=== PATIENT | female | born 1980 | race Two or more races ===

== ENCOUNTER 2021-06-04 08:36 | Emergency (ER) | payer MEDICAID ==
[~2021-06-04] VITALS: Ht 149.9 cm; Wt 79.5 kg
[~2021-06-04 08:36] MED LIST: ALBU18HF2 IH; AMOX-580 PO; HYDR-4353 PO; IBUP-24 PO; LORA-512 PO; METF1000 PO; MULT-620 PO
[2021-06-04 09:48] VITALS: BP 123/77
== END 2021-06-04 11:20 | disposition home or self-care (01) ==
LOC: ER 08:37
DX: B34.9 Viral infection, unspecified (principal); Z20.822 Contact with and (suspected) exposure to COVID-19; E11.9 Type 2 diabetes mellitus without complications; Z87.442 Personal history of urinary calculi; Z98.890 Other specified postprocedural states; Z90.710 Acquired absence of both cervix and uterus; Z88.6 Allergy status to analgesic agent; Z79.899 Other long term (current) drug therapy
CPT/HCPCS: 87635; 99283; C9803

== ENCOUNTER 2022-02-13 21:06 | Emergency (ER) | payer MEDICAID ==
[~2022-02-13] VITALS: Ht 149.9 cm; Wt 81.0 kg
[2022-02-13 21:53] LABS: CLARITY,URINE SLIGHTLY CLOUDY (Clear); COLOR,URINE YELLOW (Yellow); GLUCOSE, URINE >=1000 mg/dl (Neg); KETONES,URINE 15 mg/dl (Neg); LEUKOCYTE ESTERASE ,URINE NEGATIVE (Neg); NITRITES, URINE NEGATIVE (Neg); OCCULT BLOOD,URINE SMALL (Neg); PH,URINE 8.5 (4.8-8.0); PROTEIN,URINE NEGATIVE (Neg); UROBILINOGEN,URINE 0.2 E.U/dL (0.2-1.0)
[2022-02-13 21:57] LABS: BASOPHILS # (AUTO) 0.1 X10'3 (0-0.2); BASOPHILS % (AUTO) 0.9 % (0-1); EOSINOPHILS # (AUTO) 0.3 X10'3 (0-0.9); HEMATOCRIT 40.6 % (35.0-45.0); LYMPHOCYTES # (AUTO) 4.7 X10'3 (1.1-4.8); LYMPHOCYTES % (AUTO) 36.9 % (21-51); MEAN CORPUSCULAR HEMOGLOBIN 29.7 PG (27.0-31.0); MEAN CORPUSCULAR HGB CONC 34.6 g/dL (33.0-36.5); MEAN PLATELET VOLUME 7.3 FL (7.4-10.4); MONOCYTES # (AUTO) 0.7 X10'3 (0-0.9); MONOCYTES % (AUTO) 5.4 % (2-12); NEUTROPHILS % (AUTO) 54.8 % (42-75); PLATELET COUNT 365 X10'3 (140-440); RED BLOOD COUNT 4.72 X10'6 (4.20-5.60); RED CELL DISTRIBUTION WIDTH 12.7 % (11.5-14.5); WHITE BLOOD COUNT 12.8 X10'3 (4.5-11.0)
[2022-02-13 21:59] LABS: UA COLLECTION TYPE CLN CATCH MIDSTREAM
[2022-02-13 22:00] LABS: BACTERIA,URINE 2+ /HPF (Neg); RBC,URINE 0-2 /HPF (0-2); SQUAMOUS EPITHELIAL CELL,UR MANY /LPF (FEW); WBC,URINE 0-4 /HPF (0-4)
[2022-02-13 22:06] LABS: ALANINE AMINOTRANSFERASE 82 U/L (12-78); ALBUMIN 3.8 G/DL (3.4-5.0); ALKALINE PHOSPHATASE 111 IU/L (46-116); ANION GAP 12 (8-16); ASPARTATE AMINO TRANSFERASE 64 U/L (10-37); BILIRUBIN,TOTAL 0.3 MG/DL (0.1-1.0); BLOOD UREA NITROGEN 14 MG/DL (7-18); BUN/CREATININE RATIO 22.2 (6.6-38.0); CALCIUM 8.7 MG/DL (8.5-10.1); CHLORIDE 99 MMOL/L (99-107); CREATININE 0.63 MG/DL (0.40-0.90); GLUCOSE 261 MG/DL (70-104); POTASSIUM 3.5 MMOL/L (3.5-5.1); SODIUM 134 MMOL/L (135-145); TOTAL CARBON DIOXIDE 23.1 MMOL/L (24-32); TOTAL PROTEIN 7.7 G/DL (6.4-8.2); eGFR > 90 ML/MIN
[2022-02-14] MEDS ORDERED: morphine 4 MG/ML inj SYRINge IV PRN (02:05)
[2022-02-14] MEDS ORDERED: normal saline 1000ML IV soln IVB ONE (02:05)
[2022-02-14] MEDS ORDERED: ondansetron/PF 4mg/2ml inj IV ONE ×3 (02:05→08:35)
[2022-02-14] MEDS ORDERED: HYDROmorphone 1 mg/ml syringe IV ONE (03:50)
[2022-02-14] MEDS ORDERED: iohexol 300mg/ml 100ml inj. ONE (04:19)
[2022-02-14] MEDS: diatr meglu/diatrizoate 30ml oral sol.-(3 dose) bottle PO SCH ×3 (04:20→05:56)
[2022-02-14] MEDS ORDERED: piperacillin/tazo 3.375gm/50ml 50 ML IV ONE (07:25)
[2022-02-14] MEDS ORDERED: HYDROcodone/acetaminophen 5mg/325mg tablet PO ONE (07:25)
[2022-02-14] MEDS ORDERED: ONDA8TAB13 PO (07:29)
[2022-02-14] MEDS ORDERED: AMOX-115 PO (07:29)
[2022-02-14] MEDS ORDERED: HYDR-3965 PO (07:29)
[2022-02-14] MEDS ORDERED: bisacodyl 5mg tablet.DR PO ONE (07:35)
[2022-02-14 08:34] VITALS: BP 116/71
== END 2022-02-14 09:11 | disposition home or self-care (01) ==
LOC: ER 21:07
DX: R10.31 Right lower quadrant pain (principal); E11.65 Type 2 diabetes mellitus with hyperglycemia; R11.2 Nausea with vomiting, unspecified; K92.1 Melena; Z87.442 Personal history of urinary calculi; Z90.710 Acquired absence of both cervix and uterus; Z98.890 Other specified postprocedural states; Z88.8 Allergy status to other drugs, medicaments and biological substances; Z88.6 Allergy status to analgesic agent; Z79.2 Long term (current) use of antibiotics; Z79.899 Other long term (current) drug therapy
CPT/HCPCS: 36415; 71045; 74176; 74177; 80053; 81001; 83605; 83880; 84484; 85025; 85651; 86140; 93005; 96365; 96375; 96376; 99285; J1170; J2270; J2405; J2543; J7030; Q9963; Q9967

== ENCOUNTER 2022-02-16 23:36 | Inpatient (IN) | payer MEDICAID ==
[~2022-02-16] VITALS: Ht 149.9 cm; Wt 81.0 kg
[~2022-02-16 23:36] MED LIST changes: +AMOX-115 PO; +HYDR-3965 PO; +ONDA8TAB13 PO
[2022-02-17] VITALS (16 sets, daily range): BP systolic 94–142; BP diastolic 39–95
[2022-02-17] MEDS ORDERED: normal saline 1000ML IV soln IVB ONE (00:10)
[2022-02-17] MEDS ORDERED: ondansetron/PF 4mg/2ml inj IV ONE (00:10)
[2022-02-17] MEDS ORDERED: meperidine/PF 50mg/ml syringe IV ONE (00:15)
[2022-02-17 00:20] LABS: BASOPHILS # (AUTO) 0.1 X10'3 (0-0.2); BASOPHILS % (AUTO) 1.1 % (0-1); EOSINOPHILS # (AUTO) 0.3 X10'3 (0-0.9); EOSINOPHILS % (AUTO) 3.1 % (0-6); HEMATOCRIT 42.1 % (35.0-45.0); HEMOGLOBIN 14.5 g/dl (12.0-16.0); MEAN CORPUSCULAR HEMOGLOBIN 29.9 PG (27.0-31.0); MEAN CORPUSCULAR HGB CONC 34.5 g/dL (33.0-36.5); MEAN CORPUSCULAR VOLUME 86.7 FL (78-98); MEAN PLATELET VOLUME 7.2 FL (7.4-10.4); MONOCYTES # (AUTO) 0.6 X10'3 (0-0.9); MONOCYTES % (AUTO) 5.3 % (2-12); NEUTROPHILS # (AUTO) 5.5 X10'3 (1.8-7.7); NEUTROPHILS % (AUTO) 52.5 % (42-75); PLATELET COUNT 354 X10'3 (140-440); RED BLOOD COUNT 4.86 X10'6 (4.20-5.60); RED CELL DISTRIBUTION WIDTH 12.7 % (11.5-14.5); WHITE BLOOD COUNT 10.4 X10'3 (4.5-11.0)
[2022-02-17] MEDS ORDERED: iohexol 300mg/ml 100ml inj. ONE (00:20)
[2022-02-17 00:51] LABS: CLARITY,URINE CLEAR (Clear); COLOR,URINE YELLOW (Yellow); GLUCOSE, URINE 250 mg/dl (Neg); KETONES,URINE NEGATIVE (Neg); LEUKOCYTE ESTERASE ,URINE NEGATIVE (Neg); NITRITES, URINE NEGATIVE (Neg); OCCULT BLOOD,URINE TRACE-INTACT (Neg); PROTEIN,URINE NEGATIVE (Neg); UA COLLECTION TYPE CLN CATCH MIDSTREAM; URINE HCG NEGATIVE (NEG)
[2022-02-17 00:51] LABS: ALANINE AMINOTRANSFERASE 113 U/L (12-78); ALBUMIN 3.7 G/DL (3.4-5.0); ALBUMIN/GLOBULIN RATIO 0.9 (1.1-1.5); ALKALINE PHOSPHATASE 113 IU/L (46-116); ANION GAP 11 (8-16); ASPARTATE AMINO TRANSFERASE 54 U/L (10-37); BILIRUBIN,TOTAL 0.1 MG/DL (0.1-1.0); BLOOD UREA NITROGEN 15 MG/DL (7-18); BUN/CREATININE RATIO 25.9 (6.6-38.0); CALCIUM 8.9 MG/DL (8.5-10.1); CHLORIDE 98 MMOL/L (99-107); CREATININE 0.58 MG/DL (0.40-0.90); GLUCOSE 245 MG/DL (70-104); LIPASE 105 U/L (73-393); POTASSIUM 3.8 MMOL/L (3.5-5.1); SODIUM 137 MMOL/L (135-145); TOTAL CARBON DIOXIDE 28.5 MMOL/L (24-32); TOTAL PROTEIN 7.8 G/DL (6.4-8.2); eGFR > 90 ML/MIN
[2022-02-17 00:56] LABS: BACTERIA,URINE NONE SEEN /HPF (Neg); RBC,URINE 0-2 /HPF (0-2); SQUAMOUS EPITHELIAL CELL,UR FEW /LPF (FEW); WBC,URINE NONE SEEN /HPF (0-4)
[2022-02-17] MEDS ORDERED: mag hydrox/Alum hydrox/simeth 30ml oral suspension PO PRN (03:40)
[2022-02-17] MEDS ORDERED: magnesium hydroxide 30ml (MOM) UD suspension PO PRN (03:40)
[2022-02-17] MEDS ORDERED: diphenhydrAMINE 50 mg/ml inj IV PRN (03:40)
[2022-02-17] MEDS ORDERED: HYDROmorphone inj. 0.5 MG/0.5 ML DISP.SYRIN IV PRN (03:40)
[2022-02-17] MEDS ORDERED: HYDROcodone/acetaminophen 5mg/325mg tablet PO PRN ×2 (03:40→21:25)
[2022-02-17] MEDS ORDERED: bisacodyl 10mg suppository rectal RC PRN (03:40)
[2022-02-17] MEDS ORDERED: naloxone 0.4 mg/ml inj IV PRN ×2 (03:40→21:25)
[2022-02-17] MEDS ORDERED: diphenhydrAMINE 25mg capsule PO PRN (03:40)
[2022-02-17] MEDS ORDERED: acetaminophen 650mg rectal suppository RC PRN (03:40)
[2022-02-17] MEDS ORDERED: morphine 2 MG/ML inj. syringe IV PRN ×2 (03:40→17:45)
[2022-02-17] MEDS ORDERED: acetaminophen 325mg tablet PO PRN ×2 (03:40)
[2022-02-17] MEDS ORDERED: ondansetron 4mg rapidly disintigrating tab PO PRN (03:40)
[2022-02-17] MEDS ORDERED: MESSAGE TO PHARMACY PO ONE (03:45)
[2022-02-17] MEDS ORDERED: DEXTROSE 15 GM of carb/4 tabs (each vial/BOTTLE has 4 tablets) PO PRN ×2 (03:45)
[2022-02-17] MEDS ORDERED: dextrose 50%-water 50ml dispensing syringe IV PRN ×2 (03:45)
[2022-02-17] MEDS ORDERED: glucagon, human recombinant 1mg kit SUBCUT PRN (03:45)
[2022-02-17] MEDS: normal saline 1000ml 1,000 ML IV SCH ×3 (03:59→17:55)
[2022-02-17] MEDS ORDERED: AMOX1TAB15 PO (04:41)
[2022-02-17] MEDS ORDERED: INSU100I34 SQ (04:41)
[2022-02-17] MEDS ORDERED: ONDA4TAB12 PO (04:41)
[2022-02-17] MEDS ORDERED: INSU100I31 SQ (04:41)
[2022-02-17] MEDS ORDERED: DULA0.75 SQ (04:41)
[2022-02-17] MEDS: morphine 2 MG/ML inj. syringe IV PRN ×3 (05:39→15:53)
[2022-02-17] MEDS: ondansetron/PF 4mg/2ml inj IV PRN ×2 (05:39→15:52)
--- NOTE | 2022-02-17 07:30 | NUR ---
Received report from ED RNLester
[2022-02-17 08:04] LABS: HEMOGLOBIN A1C 8.6 % (4.5-6.2)
[2022-02-17] MEDS: docusate sod 100mg capsule PO SCH ×2 (08:05→20:00)
[2022-02-17] MEDS: HYDROcodone/acetaminophen 10/325mg tab PO PRN (08:06)
[2022-02-17] MEDS: pantoprazole 40MG/NS 100ML BAG 100 ML IV SCH (08:18)
[2022-02-17 08:39] LABS: APTT 29 SECONDS (22-32)
[2022-02-17] MEDS: piperacillin/tazo 4.5gm/100ml 100 ML IV SCH ×3 (08:53→23:23)
[2022-02-17] MEDS ORDERED: morphine 4 MG/ML inj SYRINge IV PRN (17:45)
[2022-02-17] MEDS ORDERED: ringers solution, lacted 1,000 ML IV SCH (17:45)
[2022-02-17] MEDS ORDERED: ondansetron/PF 4mg/2ml inj IV PRN (17:45)
[2022-02-17] MEDS ORDERED: proCHLORperazine 10 MG/2 ml inj IV PRN (17:45)
[2022-02-17] MEDS ORDERED: meperidine/PF 25mg/ml syringe IV PRN ×2 (17:45)
--- NOTE | 2022-02-17 18:40 | NUR ---
Problems reprioritized. Patient report given, questions answered & plan of care reviewed with CHARLENE Sequeira.
--- NOTE | 2022-02-17 18:57 | NUR ---
Patient in room [facility]. I have received report from MARCELINO CHANG and had the opportunity to ask questions and assume patient care.
--- NOTE | 2022-02-17 19:21 | NUR ---
Patient is ready for surgery BS 187, VSS. Report given to Katy Jones OR.
[2022-02-17] MEDS ORDERED: BUPIVAcaine 0.5% inj/PF 30 ML ONE (19:42)
[2022-02-17] MEDS ORDERED: FENTANYL CITRATE/PF 50 MCG/1 ML VIAL ONE ×2 (20:04)
[2022-02-17] MEDS ORDERED: midazolam 1 mg/ML 2ml injection ONE (20:04)
[2022-02-17] MEDS ORDERED: LIDOcaine 2% (20mg/ml) 5ml vial ONE (20:08)
[2022-02-17] MEDS ORDERED: propofol inj 20 ML IV ONE (20:08)
[2022-02-17] MEDS ORDERED: rocuronium 10mg/ml inj IV ONE (20:08)
[2022-02-17] MEDS ORDERED: dexamethasone sod phosphate 4mg/ml inj. ONE (20:16)
[2022-02-17] MEDS ORDERED: ondansetron/PF 4mg/2ml inj ONE (20:17)
[2022-02-17] MEDS ORDERED: meperidine/PF 25mg/ml syringe ONE (21:03)
--- NOTE | 2022-02-17 21:34 | NUR ---
Received from OR via BED, accompanied by Anesthesiologist DR GARBER and report given by Anesthesiologist. PT DROWSY, NO S/S OF DISTRESS/DISCOMFORT. ABDOMEN W/3 LAP SITES W/BANDAIDS CDI. Addendum: 02/17/22 at 2201 by Brittany Adams RN Amended: Links added.
[2022-02-17] MEDS ORDERED: insulin regular, human 10 units/0.1 ml syringe IV ONE (21:45)
[2022-02-17] MEDS: ketorolac trometh. 30mg/ml inj. IV PRN (22:02)
[2022-02-17] MEDS: meperidine/PF 25mg/ml syringe IV PRN ×2 (22:24→22:26)
--- NOTE | 2022-02-17 22:44 | NUR ---
Report called to receiving nurse. Transferred via BED, NO Belongings. RN AT BEDSIDE TO RECEIVE PT, BLL, CALL LIGHT GIVEN, SIDE RAILS UP X 2. Special Issues communicated to receiving nurse. YES. Addendum: 02/17/22 at 2253 by Brittany Adams RN Amended: Links added.
--- NOTE | 2022-02-17 23:01 | NUR ---
Patient in room [facility]. I have received report from autumn CHANG and had the opportunity to ask questions and assume patient care.patient c/o pain 10/10 on receiving her from recovery but promptly fell asleep when repositioned in bed. Bandaides x3 to lower abdomen CDI. patient commenced on postop VS, appears stable. Significant other waited for patient to return to room then left to go home. will continue to monitor.
[2022-02-18] VITALS: BP_SYST 119; BP_SYST 130; BP_DIAS 55; BP_DIAS 82
[2022-02-18 00:30] VITALS: BP 120/63
[2022-02-18 01:30] VITALS: BP 138/78
[2022-02-18] MEDS: morphine 2 MG/ML inj. syringe IV PRN ×3 (01:42→11:13)
[2022-02-18 02:30] VITALS: BP 122/77
[2022-02-18] MEDS: insulin Lispro (HumaLOG) vial - multi-dose SQ SCH ×2 (03:20→08:37)
[2022-02-18] MEDS: normal saline 1000ml 1,000 ML IV SCH (03:24)
--- NOTE | 2022-02-18 03:39 | NUR ---
patients blood sugar [id number], Dr krause paged for orders. Recommended treat patient with sliding scale. patient given 8U of insulin see emar. will continue to monitor.
--- NOTE | 2022-02-18 05:21 | NUR ---
patient resting no c/o pain
--- NOTE | 2022-02-18 06:00 | NUR ---
patient c/o pain 10/10 medicated per EMAR, encouraged to ambulate. Report given to Halley CHANG
[2022-02-18 06:30] VITALS: BP 115/66
--- NOTE | 2022-02-18 06:30 | NUR ---
Patient in room [facility]. I have received report from CHARLENE Sequeira and had the opportunity to ask questions and assume patient care.
[2022-02-18 06:41] LABS: BASOPHILS % (AUTO) 0.1 % (0-1); EOSINOPHILS % (AUTO) 0 % (0-6); HEMATOCRIT 39.1 % (35.0-45.0); HEMOGLOBIN 13.1 g/dl (12.0-16.0); MEAN CORPUSCULAR HEMOGLOBIN 28.8 PG (27.0-31.0); MEAN CORPUSCULAR HGB CONC 33.6 g/dL (33.0-36.5); MEAN CORPUSCULAR VOLUME 85.9 FL (78-98); MEAN PLATELET VOLUME 7.3 FL (7.4-10.4); MONOCYTES # (AUTO) 0.3 X10'3 (0-0.9); NEUTROPHILS # (AUTO) 15.4 X10'3 (1.8-7.7); NEUTROPHILS % (AUTO) 91.9 % (42-75); PLATELET COUNT 297 X10'3 (140-440); RED BLOOD COUNT 4.55 X10'6 (4.20-5.60); RED CELL DISTRIBUTION WIDTH 12.7 % (11.5-14.5); WHITE BLOOD COUNT 16.7 X10'3 (4.5-11.0)
[2022-02-18 06:51] LABS: ALANINE AMINOTRANSFERASE 86 U/L (12-78); ALBUMIN/GLOBULIN RATIO 0.9 (1.1-1.5); ALKALINE PHOSPHATASE 91 IU/L (46-116); ANION GAP 12 (8-16); ASPARTATE AMINO TRANSFERASE 38 U/L (10-37); BILIRUBIN,TOTAL 0.4 MG/DL (0.1-1.0); BLOOD UREA NITROGEN 8 MG/DL (7-18); BUN/CREATININE RATIO 11.4 (6.6-38.0); CALCIUM 8.4 MG/DL (8.5-10.1); CHLORIDE 101 MMOL/L (99-107); CHOL/HDL RATIO 4.5 (0.00-4.99); CHOLESTEROL 231 MG/DL (0-200); GLUCOSE 252 MG/DL (70-104); HDL CHOLESTEROL 51 MG/DL (35-60); LDL CHOLESTEROL 158 MG/DL (50-100); POTASSIUM 3.6 MMOL/L (3.5-5.1); SODIUM 135 MMOL/L (135-145); TOTAL CARBON DIOXIDE 21.9 MMOL/L (24-32); TOTAL PROTEIN 6.4 G/DL (6.4-8.2); TRIGLYCERIDES 57 MG/DL (20-135); eGFR > 90 ML/MIN
[2022-02-18] MEDS: pantoprazole 40MG/NS 100ML BAG 100 ML IV SCH (08:26)
[2022-02-18] MEDS: HYDROcodone/acetaminophen 10/325mg tab PO PRN ×2 (08:32→12:58)
[2022-02-18] MEDS: docusate sod 100mg capsule PO SCH (08:32)
[2022-02-18] MEDS: piperacillin/tazo 4.5gm/100ml 100 ML IV SCH (08:33)
[2022-02-18] MEDS: ketorolac trometh. 30mg/ml inj. IV PRN (10:03)
--- NOTE | 2022-02-18 10:49 | NUR ---
Diabetes consult: Noted pt w/ hx of DM, A1c 8.6. Pt states she has been diabetic for 20 years. Provided pt and family w/ written and verbal DM w/ RD contact info. Addendum: 02/18/22 at [address] Amended: Links added.
[2022-02-18 11:00] VITALS: BP 119/66
[2022-02-18] MEDS ORDERED: AMOX-419 PO (15:31)
--- NOTE | 2022-02-18 16:30 | NUR ---
DC inst provided to pt & pt's . IV DC'd, tip intact. All belongings sent w/pt. WC to vehicle.
== END 2022-02-18 16:30 | disposition home or self-care (01) | DRG 234 ==
LOC: ER 23:36 → ED HOLD 02-17 03:43 → SUR 3N 02-17 07:45
PROVIDERS: ADMIT Family Medicine; ATTEND Family Medicine
PROC: BW211ZZ Computerized Tomography (CT Scan) of Abdomen and Pelvis using Low Osmolar Contrast (ICD-10-PCS; 2022-02-17)
PROC: 0DTJ4ZZ Resection of Appendix, Percutaneous Endoscopic Approach (ICD-10-PCS; principal; 2022-02-17 19:55)
DX: K35.80 Unspecified acute appendicitis (principal); E11.9 Type 2 diabetes mellitus without complications; I10 Essential (primary) hypertension; K57.30 Diverticulosis of large intestine without perforation or abscess without bleeding; K59.00 Constipation, unspecified; Z20.822 Contact with and (suspected) exposure to COVID-19; R74.01 Elevation of levels of liver transaminase levels; Z87.442 Personal history of urinary calculi; Z90.710 Acquired absence of both cervix and uterus; Z98.891 History of uterine scar from previous surgery; Z88.8 Allergy status to other drugs, medicaments and biological substances; Z79.899 Other long term (current) drug therapy; Z90.722 Acquired absence of ovaries, bilateral
CPT/HCPCS: 36415; 71045; 74177; 80053; 80061; 81001; 81025; 82948; 83036; 83605; 83690; 83735; 83880; 85025; 85610; 85730; 87040; 87081; 87635; 93005; 99285; A4215; A4314; A4618; A7000; C9113; G0378; J1100; J1815; J1885; J2175; J2250; J2270; J2405; J2543; J2704; J3010; J3490; J7030; J7120; Q9967; S0020

== ENCOUNTER 2022-02-22 15:08 | Inpatient (IN) | payer MEDICAID ==
[~2022-02-22] VITALS: Ht 149.9 cm; Wt 81.8 kg
[~2022-02-22 15:08] MED LIST changes: -ALBU18HF2 IH; -AMOX-115 PO; +AMOX-419 PO; -AMOX-580 PO; +DULA0.75 SQ; -HYDR-3965 PO; -HYDR-4353 PO; -IBUP-24 PO; +INSU100I31 SQ; +INSU100I34 SQ; -LORA-512 PO; -METF1000 PO; -MULT-620 PO; -ONDA8TAB13 PO
[2022-02-22 15:48] LABS: BASOPHILS % (AUTO) 0.4 % (0-1); EOSINOPHILS # (AUTO) 0.2 X10'3 (0-0.9); EOSINOPHILS % (AUTO) 1.8 % (0-6); HEMOGLOBIN 12.4 g/dl (12.0-16.0); LYMPHOCYTES # (AUTO) 1.7 X10'3 (1.1-4.8); LYMPHOCYTES % (AUTO) 16.2 % (21-51); MEAN CORPUSCULAR HGB CONC 33.6 g/dL (33.0-36.5); MEAN CORPUSCULAR VOLUME 86.5 FL (78-98); MEAN PLATELET VOLUME 7.2 FL (7.4-10.4); MONOCYTES # (AUTO) 0.6 X10'3 (0-0.9); MONOCYTES % (AUTO) 5.3 % (2-12); NEUTROPHILS # (AUTO) 8.1 X10'3 (1.8-7.7); NEUTROPHILS % (AUTO) 76.3 % (42-75); PLATELET COUNT 386 X10'3 (140-440); RED BLOOD COUNT 4.28 X10'6 (4.20-5.60); RED CELL DISTRIBUTION WIDTH 12.9 % (11.5-14.5); WHITE BLOOD COUNT 10.7 X10'3 (4.5-11.0)
[2022-02-22 16:02] LABS: ALANINE AMINOTRANSFERASE 106 U/L (12-78); ALBUMIN 2.4 G/DL (3.4-5.0); ALBUMIN/GLOBULIN RATIO 0.5 (1.1-1.5); ALKALINE PHOSPHATASE 196 IU/L (46-116); ANION GAP 12 (8-16); ASPARTATE AMINO TRANSFERASE 24 U/L (10-37); BILIRUBIN,TOTAL 0.6 MG/DL (0.1-1.0); BLOOD UREA NITROGEN 10 MG/DL (7-18); BUN/CREATININE RATIO 17.5 (6.6-38.0); CALCIUM 8.5 MG/DL (8.5-10.1); CHLORIDE 99 MMOL/L (99-107); CREATININE 0.57 MG/DL (0.40-0.90); GLUCOSE 267 MG/DL (70-104); LIPASE < 50 U/L (73-393); POTASSIUM 3.5 MMOL/L (3.5-5.1); SODIUM 136 MMOL/L (135-145); TOTAL CARBON DIOXIDE 25.3 MMOL/L (24-32); TOTAL PROTEIN 7.2 G/DL (6.4-8.2); eGFR > 90 ML/MIN
[2022-02-22] MEDS ORDERED: morphine 4 MG/ML inj SYRINge IV ONE (17:40)
[2022-02-22] MEDS ORDERED: ondansetron/PF 4mg/2ml inj IV ONE (17:40)
[2022-02-22] MEDS ORDERED: normal saline 1000ml 1,000 ML IV ONE (17:40)
[2022-02-22] MEDS ORDERED: acetaminophen 325mg tablet PO ONE (17:40)
[2022-02-22] MEDS ORDERED: iohexol 300mg/ml 100ml inj. ONE (17:52)
--- NOTE | 2022-02-22 18:47 | NUR ---
Pt back from CT. IVF hooked back up and infusing well s complication or adverse reaction. PIV site c/d/i. Pt pink, alert. Family at bedside. Bed in lowest position, wheels locked, rail 2/2 up. Will continue to monitor pt for acute changes and needs.
[2022-02-22] MEDS ORDERED: piperacillin/tazo 3.375gm/50ml 50 ML IV ONE (19:10)
[2022-02-22] MEDS ORDERED: HYDR-3964 PO (19:15)
[2022-02-22] MEDS ORDERED: AMOX1TAB15 PO (19:15)
--- NOTE | 2022-02-22 19:30 | NUR ---
Pt PIV site c/d/i. Pt pink, alert. Bed in lowest position, wheels locked, rail 2/2 up. Will continue to monitor pt for acute changes and needs.
[2022-02-22] MEDS ORDERED: potassium Cl 20 mEq SR tablet PO PRN (20:00)
[2022-02-22] MEDS: K and/or MAG REPLACEMENT MC SCH (20:00)
[2022-02-22] MEDS ORDERED: mag hydrox/Alum hydrox/simeth 30ml oral suspension PO PRN (20:00)
[2022-02-22] MEDS ORDERED: magnesium Cl slow-release 64mg tablet PO PRN (20:00)
[2022-02-22] MEDS ORDERED: magnesium hydroxide 30ml (MOM) UD suspension PO PRN (20:00)
[2022-02-22] MEDS ORDERED: acetaminophen 325mg tablet PO PRN (20:00)
[2022-02-22] MEDS ORDERED: glucagon, human recombinant 1mg kit SUBCUT PRN (20:00)
[2022-02-22] MEDS ORDERED: magnesium 4gm in 100ml NS 100 ML IV PRN (20:00)
[2022-02-22] MEDS ORDERED: MESSAGE TO PHARMACY PO ONE (20:00)
[2022-02-22] MEDS ORDERED: potassium CL 10mEq/100ml bag 100 ML IV PRN (20:00)
[2022-02-22] MEDS ORDERED: dextrose 50%-water 50ml dispensing syringe IV PRN ×2 (20:00)
[2022-02-22] MEDS ORDERED: DEXTROSE 15 GM of carb/4 tabs (each vial/BOTTLE has 4 tablets) PO PRN ×2 (20:00)
[2022-02-22] MEDS ORDERED: magnesium 2GM in 50ml NS 50 ML IV PRN (20:00)
[2022-02-22 20:27] LABS: MAGNESIUM 1.5 MG/DL (1.5-2.4); POTASSIUM 3.5 MMOL/L (3.5-5.1)
--- NOTE | 2022-02-22 20:30 | NUR ---
Pt PIV site c/d/i. Pt pink, alert. Bed in lowest position, wheels locked, rail 2/2 up. Will continue to monitor pt for acute changes and needs.
[2022-02-22] MEDS: docusate sod 100mg capsule PO SCH (20:33)
[2022-02-22] MEDS: heparin, porcine 5000 units/ml vial SQ SCH (20:34)
[2022-02-22] MEDS: normal saline 1000ml 1,000 ML IV SCH ×3 (20:46→23:42)
[2022-02-22] MEDS: diatr meglu/diatrizoate 30ml oral sol.-(3 dose) bottle PO SCH (21:00)
[2022-02-22] MEDS: insulin glargine (Lantus) pen - multi-dose SQ SCH ×2 (21:00→22:26)
--- NOTE | 2022-02-22 21:30 | NUR ---
Pt PIV site c/d/i. Pt pink, alert. Bed in lowest position, wheels locked, rail 2/2 up. Will continue to monitor pt for acute changes and needs.
[2022-02-22] MEDS: vancomycin/NS 1 GM ADD-VANTAGE 250 ML IV SCH (21:39)
[2022-02-22] MEDS ORDERED: morphine 4 MG/ML inj SYRINge ONE (22:13)
[2022-02-22] MEDS: morphine 4 MG/ML inj SYRINge IV PRN (22:18)
--- NOTE | 2022-02-22 22:30 | NUR ---
Pt PIV site c/d/i. Pt pink, alert. Bed in lowest position, wheels locked, rail 2/2 up. Will continue to monitor pt for acute changes and needs.
--- NOTE | 2022-02-22 23:30 | NUR ---
Pt PIV site c/d/i. Pt pink, alert. Bed in lowest position, wheels locked, rail 2/2 up. Will continue to monitor pt for acute changes and needs.
[2022-02-23] VITALS (9 sets, daily range): BP systolic 143–161; BP diastolic 82–95
--- NOTE | 2022-02-23 00:39 | NUR ---
Pt PIV site c/d/i. Pt pink, alert. Bed in lowest position, wheels locked, rail 2/2 up. Will continue to monitor pt for acute changes and needs.
[2022-02-23 01:24] LABS: BASOPHILS % (AUTO) 0.4 % (0-1); EOSINOPHILS # (AUTO) 0.2 X10'3 (0-0.9); EOSINOPHILS % (AUTO) 2.1 % (0-6); HEMATOCRIT 33.6 % (35.0-45.0); HEMOGLOBIN 11.4 g/dl (12.0-16.0); LYMPHOCYTES % (AUTO) 19.7 % (21-51); MEAN CORPUSCULAR HEMOGLOBIN 29.6 PG (27.0-31.0); MEAN CORPUSCULAR HGB CONC 34.1 g/dL (33.0-36.5); MEAN PLATELET VOLUME 7.1 FL (7.4-10.4); MONOCYTES # (AUTO) 0.6 X10'3 (0-0.9); MONOCYTES % (AUTO) 5.5 % (2-12); NEUTROPHILS # (AUTO) 7.4 X10'3 (1.8-7.7); NEUTROPHILS % (AUTO) 72.3 % (42-75); PLATELET COUNT 343 X10'3 (140-440); RED BLOOD COUNT 3.86 X10'6 (4.20-5.60); WHITE BLOOD COUNT 10.2 X10'3 (4.5-11.0)
--- NOTE | 2022-02-23 01:33 | NUR ---
Pt PIV site c/d/i. Pt pink, alert. Bed in lowest position, wheels locked, rail 2/2 up. Will continue to monitor pt for acute changes and needs.
[2022-02-23] MEDS: piperacillin/tazo 3.375gm/50ml 50 ML IV SCH ×4 (01:40→23:39)
[2022-02-23 01:41] LABS: ALANINE AMINOTRANSFERASE 84 U/L (12-78); ALBUMIN 2.2 G/DL (3.4-5.0); ALBUMIN/GLOBULIN RATIO 0.5 (1.1-1.5); ALKALINE PHOSPHATASE 170 IU/L (46-116); ANION GAP 11 (8-16); ASPARTATE AMINO TRANSFERASE 21 U/L (10-37); BILIRUBIN,TOTAL 0.5 MG/DL (0.1-1.0); BLOOD UREA NITROGEN 8 MG/DL (7-18); BUN/CREATININE RATIO 15.4 (6.6-38.0); CALCIUM 7.8 MG/DL (8.5-10.1); CHLORIDE 100 MMOL/L (99-107); CREATININE 0.52 MG/DL (0.40-0.90); GLUCOSE 216 MG/DL (70-104); MAGNESIUM 1.8 MG/DL (1.5-2.4); POTASSIUM 3.3 MMOL/L (3.5-5.1); SODIUM 135 MMOL/L (135-145); TOTAL CARBON DIOXIDE 24.5 MMOL/L (24-32); TOTAL PROTEIN 6.5 G/DL (6.4-8.2); eGFR > 90 ML/MIN
--- NOTE | 2022-02-23 02:08 | NUR ---
Pt pink, alert. Bed in lowest position, wheels locked, rail 2/2 up. Will continue to monitor pt for acute changes and needs. Pt laying supine, able to reposition self prn.
--- NOTE | 2022-02-23 03:39 | NUR ---
Pt darian alert. Bed in lowest position, wheels locked, rail 2/2 up. Will continue to monitor pt for acute changes and needs. Pt laying supine, able to reposition self prn. Pt to CT Addendum: 02/23/22 at 0413 by [email or web address] Pt darian alert. Bed in lowest position, wheels locked, rail 2/2 up. Will continue to monitor pt for acute changes and needs. Pt laying supine, able to reposition self prn.
[2022-02-23] MEDS: morphine 4 MG/ML inj SYRINge IV PRN ×7 (04:08→23:39)
[2022-02-23] MEDS: ondansetron/PF 4mg/2ml inj IV PRN ×3 (04:08→19:46)
[2022-02-23] MEDS ORDERED: BLOO-580 (04:13)
[2022-02-23] MEDS ORDERED: ONDA8TAB13 PO (04:13)
[2022-02-23] MEDS ORDERED: ALBUTEROL (04:13)
[2022-02-23] MEDS ORDERED: PRED20TA PO (04:13)
[2022-02-23] MEDS ORDERED: INSU100I45 SQ (04:13)
[2022-02-23] MEDS ORDERED: ONDA4TAB12 PO (04:13)
[2022-02-23] MEDS ORDERED: INSU100I39 SQ (04:13)
[2022-02-23] MEDS ORDERED: NEOM10DR45 EACH EAR (04:13)
[2022-02-23] MEDS ORDERED: BENZ200C53 PO (04:13)
[2022-02-23] MEDS ORDERED: AMOX-CLAV (04:13)
--- NOTE | 2022-02-23 04:47 | NUR ---
Pt pink, alert. Bed in lowest position, wheels locked, rail 2/2 up. Will continue to monitor pt for acute changes and needs. Pt laying supine, able to reposition self prn. Pt states pain is much better after last dose of morphine and zofran. Pt able to sleep with door to room closed.
--- NOTE | 2022-02-23 05:01 | NUR ---
Pt pink, alert. Bed in lowest position, wheels locked, rail 2/2 up. Will continue to monitor pt for acute changes and needs. Pt laying supine, able to reposition self prn. Pillow under left side.
--- NOTE | 2022-02-23 05:40 | NUR ---
Pt pink, alert. Bed in lowest position, wheels locked, rail 2/2 up. Will continue to monitor pt for acute changes and needs. Pt laying supine, able to reposition self prn. Handoff report to [facility] RN
[2022-02-23 06:52] LABS: URINE HCG NEGATIVE (NEG)
[2022-02-23 06:55] LABS: CLARITY,URINE CLEAR (Clear); COLOR,URINE YELLOW (Yellow); GLUCOSE, URINE NEGATIVE (Neg); KETONES,URINE >=80 mg/dl (Neg); LEUKOCYTE ESTERASE ,URINE NEGATIVE (Neg); NITRITES, URINE NEGATIVE (Neg); OCCULT BLOOD,URINE MODERATE (Neg); PROTEIN,URINE NEGATIVE (Neg)
[2022-02-23 07:02] LABS: UA COLLECTION TYPE NON-SPECIFIED
[2022-02-23 07:03] LABS: BACTERIA,URINE 1+ /HPF (Neg); MUCUS STRANDS NONE SEEN /LPF (Neg); SQUAMOUS EPITHELIAL CELL,UR MODERATE /LPF (FEW); WBC,URINE 0-4 /HPF (0-4)
[2022-02-23] MEDS: diatr meglu/diatrizoate 30ml oral sol.-(3 dose) bottle PO SCH ×2 (07:14→10:06)
--- NOTE | 2022-02-23 07:57 | NUR ---
Notified CT patient completed second dose of oral contrast at 0745.
[2022-02-23] MEDS: K and/or MAG REPLACEMENT MC SCH ×2 (08:00→23:40)
[2022-02-23] MEDS: docusate sod 100mg capsule PO SCH ×2 (08:00→19:31)
[2022-02-23] MEDS: vancomycin/NS 1 GM ADD-VANTAGE 250 ML IV SCH ×2 (09:34→21:13)
[2022-02-23] MEDS: heparin, porcine 5000 units/ml vial SQ SCH ×2 (09:34→19:36)
[2022-02-23] MEDS ORDERED: iohexol 300mg/ml 100ml inj. ONE ×2 (10:14→11:05)
--- NOTE | 2022-02-23 14:43 | NUR ---
Patient going to IR.
[2022-02-23] MEDS ORDERED: fentaNYL/PF 50MCG/1 ML 2ML syringe ONE (14:58)
[2022-02-23] MEDS ORDERED: LIDOcaine 1% (10mg/ml) 2ml vial ONE (15:20)
--- NOTE | 2022-02-23 16:05 | NUR ---
Spoke to pharmacy regarding delay in Zosyn dosing. Per pharmacist, skip 1600 dose and resume normal dosing schedule at 0000.
[2022-02-23] MEDS: normal saline 1000ml 1,000 ML IV SCH (16:25)
[2022-02-23] MEDS: lisinopril 10 MG tablet PO SCH (17:10)
--- NOTE | 2022-02-23 18:30 | NUR ---
Pt pink, alert, no acute/resp distress. PIV site c/d/i no s/s complication or hematoma.
[2022-02-23] MEDS: potassium Cl 20 mEq SR tablet PO PRN ×2 (19:00→23:44)
[2022-02-23] MEDS: insulin Lispro (HumaLOG) vial - multi-dose SQ SCH (19:29)
[2022-02-23] MEDS: insulin glargine (Lantus) pen - multi-dose SQ SCH (19:31)
--- NOTE | 2022-02-23 21:27 | NUR ---
Pt pink, alert. Bed in lowest position, wheels locked, rail 2/2 up. Will continue to monitor pt for acute changes and needs. Pt laying supine, able to reposition self prn. Report called to floor.
[2022-02-24] VITALS: BP 136/81
[2022-02-24] MEDS: normal saline 1000ml 1,000 ML IV SCH ×3 (04:16→17:46)
[2022-02-24] MEDS: morphine 4 MG/ML inj SYRINge IV PRN ×2 (05:19→20:43)
[2022-02-24 06:30] VITALS: BP 129/73
--- NOTE | 2022-02-24 06:50 | NUR ---
Patient in room [facility]. I have received report from CHARLENE Melo and had the opportunity to ask questions and assume patient care.
[2022-02-24] MEDS: docusate sod 100mg capsule PO SCH (08:00)
[2022-02-24] MEDS: ondansetron/PF 4mg/2ml inj IV PRN (08:01)
--- NOTE | 2022-02-24 08:28 | NUR ---
DM consult: Pt with T2DM with most recent A1c in EMR 8.6% 02/17. Pt seen at bedside 02/18 at previous admit for written and verbal DM education. RD contact information provided at that time. No additional education provided at this time. Will remain available. Addendum: 02/24/22 at [address] Amended: Links added.
[2022-02-24] MEDS ORDERED: VANCOMYCIN LEVEL IV ONE (08:30)
[2022-02-24] MEDS ORDERED: HYDROcodone/acetaminophen 5mg/325mg tablet PO PRN ×2 (08:45→10:55)
[2022-02-24] MEDS ORDERED: HYDROcodone/acetaminophen 10/325mg tab PO PRN (08:45)
[2022-02-24] MEDS: HYDROcodone/acetaminophen 10/325mg tab PO PRN ×2 (09:00→18:22)
[2022-02-24] MEDS: piperacillin/tazo 3.375gm/50ml 50 ML IV SCH ×2 (09:02→16:28)
[2022-02-24] MEDS: lisinopril 10 MG tablet PO SCH (09:02)
[2022-02-24] MEDS: heparin, porcine 5000 units/ml vial SQ SCH ×2 (09:04→21:36)
[2022-02-24 09:15] LABS: BASOPHILS # (AUTO) 0.1 X10'3 (0-0.2); BASOPHILS % (AUTO) 0.7 % (0-1); EOSINOPHILS # (AUTO) 0.2 X10'3 (0-0.9); EOSINOPHILS % (AUTO) 3.2 % (0-6); HEMATOCRIT 33.1 % (35.0-45.0); HEMOGLOBIN 11.3 g/dl (12.0-16.0); LYMPHOCYTES # (AUTO) 2.1 X10'3 (1.1-4.8); MEAN CORPUSCULAR HEMOGLOBIN 29.7 PG (27.0-31.0); MEAN CORPUSCULAR HGB CONC 34.1 g/dL (33.0-36.5); MONOCYTES # (AUTO) 0.6 X10'3 (0-0.9); MONOCYTES % (AUTO) 7.8 % (2-12); NEUTROPHILS # (AUTO) 4.6 X10'3 (1.8-7.7); NEUTROPHILS % (AUTO) 60.3 % (42-75); PLATELET COUNT 398 X10'3 (140-440); RED CELL DISTRIBUTION WIDTH 12.7 % (11.5-14.5); WHITE BLOOD COUNT 7.6 X10'3 (4.5-11.0)
[2022-02-24] MEDS: insulin Lispro (HumaLOG) vial - multi-dose SQ SCH ×4 (09:22→21:45)
[2022-02-24] MEDS ORDERED: proCHLORperazine 10 MG/2 ml inj IV PRN (09:25)
[2022-02-24 09:30] LABS: ALANINE AMINOTRANSFERASE 83 U/L (12-78); ALBUMIN 2.2 G/DL (3.4-5.0); ALBUMIN/GLOBULIN RATIO 0.5 (1.1-1.5); ALKALINE PHOSPHATASE 207 IU/L (46-116); ANION GAP 9 (8-16); ASPARTATE AMINO TRANSFERASE 47 U/L (10-37); BILIRUBIN,TOTAL 0.4 MG/DL (0.1-1.0); BLOOD UREA NITROGEN 6 MG/DL (7-18); BUN/CREATININE RATIO 11.3 (6.6-38.0); CALCIUM 8.1 MG/DL (8.5-10.1); CHLORIDE 103 MMOL/L (99-107); CREATININE 0.53 MG/DL (0.40-0.90); GLUCOSE 251 MG/DL (70-104); MAGNESIUM 1.9 MG/DL (1.5-2.4); POTASSIUM 3.5 MMOL/L (3.5-5.1); SODIUM 139 MMOL/L (135-145); TOTAL CARBON DIOXIDE 26.7 MMOL/L (24-32); TOTAL PROTEIN 6.5 G/DL (6.4-8.2); VANCOMYCIN,TROUGH 4.5 UG/ML (6.0-14.0); eGFR > 90 ML/MIN
[2022-02-24] MEDS: K and/or MAG REPLACEMENT MC SCH ×2 (09:34→19:13)
[2022-02-24] MEDS ORDERED: diphenhydrAMINE 50 mg/ml inj ONE (09:51)
[2022-02-24] MEDS ORDERED: diphenhydrAMINE 25 MG/10 ML UD oral solution PO ONE ×2 (09:55→11:15)
[2022-02-24] MEDS: vancomycin/NS 1 GM ADD-VANTAGE 250 ML IV SCH ×2 (10:13→17:41)
[2022-02-24 10:26] LABS: PLATELET ESTIMATE NORMAL; TOTAL CELLS COUNTED 100
[2022-02-24] MEDS ORDERED: amLODIPine 5mg tablet PO ONE (10:55)
[2022-02-24 18:30] VITALS: BP 146/95
[2022-02-24] MEDS: insulin glargine (Lantus) pen - multi-dose SQ SCH (21:41)
[2022-02-25] VITALS: BP 151/64
[2022-02-25] MEDS: piperacillin/tazo 3.375gm/50ml 50 ML IV SCH ×2 (00:26→08:19)
[2022-02-25] MEDS: HYDROcodone/acetaminophen 10/325mg tab PO PRN ×3 (00:28→13:06)
[2022-02-25] MEDS: vancomycin/NS 1 GM ADD-VANTAGE 250 ML IV SCH (01:23)
[2022-02-25] MEDS: morphine 4 MG/ML inj SYRINge IV PRN ×2 (02:43→08:26)
[2022-02-25] MEDS: normal saline 1000ml 1,000 ML IV SCH (05:47)
--- NOTE | 2022-02-25 06:07 | NUR ---
Patient in room [facility]. I have received report from Halley CHANG and had the opportunity to ask questions and assume patient care.
--- NOTE | 2022-02-25 06:30 | NUR ---
Problems reprioritized. Patient report given, questions answered & plan of care reviewed with CHARLENE Sequeira.
[2022-02-25 06:42] LABS: BASOPHILS # (AUTO) 0.1 X10'3 (0-0.2); EOSINOPHILS # (AUTO) 0.3 X10'3 (0-0.9); EOSINOPHILS % (AUTO) 2.7 % (0-6); HEMOGLOBIN 12.5 g/dl (12.0-16.0); LYMPHOCYTES # (AUTO) 2.8 X10'3 (1.1-4.8); LYMPHOCYTES % (AUTO) 27.6 % (21-51); MEAN CORPUSCULAR HGB CONC 34.6 g/dL (33.0-36.5); MEAN CORPUSCULAR VOLUME 86.7 FL (78-98); MEAN PLATELET VOLUME 7.4 FL (7.4-10.4); MONOCYTES # (AUTO) 0.8 X10'3 (0-0.9); MONOCYTES % (AUTO) 7.8 % (2-12); NEUTROPHILS # (AUTO) 6.1 X10'3 (1.8-7.7); NEUTROPHILS % (AUTO) 60.9 % (42-75); PLATELET COUNT 429 X10'3 (140-440); RED BLOOD COUNT 4.15 X10'6 (4.20-5.60); RED CELL DISTRIBUTION WIDTH 12.8 % (11.5-14.5); WHITE BLOOD COUNT 10.1 X10'3 (4.5-11.0)
[2022-02-25 07:00] VITALS: BP 145/85
[2022-02-25 07:01] LABS: ALANINE AMINOTRANSFERASE 100 U/L (12-78); ALBUMIN 2.6 G/DL (3.4-5.0); ALBUMIN/GLOBULIN RATIO 0.5 (1.1-1.5); ALKALINE PHOSPHATASE 258 IU/L (46-116); ANION GAP 9 (8-16); ASPARTATE AMINO TRANSFERASE 63 U/L (10-37); BILIRUBIN,TOTAL 0.4 MG/DL (0.1-1.0); BLOOD UREA NITROGEN 5 MG/DL (7-18); BUN/CREATININE RATIO 8.9 (6.6-38.0); CALCIUM 8.8 MG/DL (8.5-10.1); CHLORIDE 103 MMOL/L (99-107); CREATININE 0.56 MG/DL (0.40-0.90); GLUCOSE 190 MG/DL (70-104); MAGNESIUM 2.1 MG/DL (1.5-2.4); POTASSIUM 3.3 MMOL/L (3.5-5.1); SODIUM 141 MMOL/L (135-145); TOTAL CARBON DIOXIDE 28.6 MMOL/L (24-32); TOTAL PROTEIN 7.5 G/DL (6.4-8.2); eGFR > 90 ML/MIN
[2022-02-25] MEDS: K and/or MAG REPLACEMENT MC SCH (08:00)
[2022-02-25] MEDS: lisinopril 10 MG tablet PO SCH (08:21)
[2022-02-25] MEDS: heparin, porcine 5000 units/ml vial SQ SCH (08:22)
[2022-02-25] MEDS ORDERED: cefepime 1GM/NS ADD-VANTAGE 100 ML IV SCH (09:20)
[2022-02-25 09:41] LABS: TOTAL CELLS COUNTED 100
[2022-02-25 09:42] LABS: ELLIPTOCYTES FEW; PLATELET ESTIMATE NORMAL; STOMATOCYTES FEW; TEAR DROP CELLS FEW
[2022-02-25] MEDS ORDERED: CEFU500T66 PO (09:58)
[2022-02-25] MEDS: insulin Lispro (HumaLOG) vial - multi-dose SQ SCH ×2 (10:00→13:11)
[2022-02-25] MEDS ORDERED: LISI10TA27 PO (10:00)
[2022-02-25 11:33] VITALS: BP 135/82
[2022-02-25] MEDS ORDERED: HYDR-3965 PO (12:49)
--- NOTE | 2022-02-25 14:29 | NUR ---
patient medicated for pain seen by Dr rosales and DR Hernandez is for discharge. patient given all DC instructions including how to irrigate OSIRIS drain . supplies given to patient . Meds escript to [facility] on [address]. Patients PIV removed in tact, OSIRIS draining purulent discharge was irrigated this am by DR Rosales. patient and spouse state understanding of how to do this. will see Dr montes office this following week patient aware. DC home via private car with spouse in stable condition.[id number]
[2022-02-25] MEDS ORDERED: VANCOMYCIN LEVEL IV ONE (16:30)
== END 2022-02-25 13:44 | disposition home or self-care (01) | DRG 721 ==
LOC: ER 15:11 → ED HOLD 20:00 → SUR 3N 02-23 22:00
PROVIDERS: ADMIT Internal Medicine; ATTEND Internal Medicine
PROC: BW211ZZ Computerized Tomography (CT Scan) of Abdomen and Pelvis using Low Osmolar Contrast (ICD-10-PCS; 2022-02-22)
PROC: 0W9F30Z Drainage of Abdominal Wall with Drainage Device, Percutaneous Approach (ICD-10-PCS; principal; 2022-02-23)
PROC: BW211ZZ Computerized Tomography (CT Scan) of Abdomen and Pelvis using Low Osmolar Contrast (ICD-10-PCS; 2022-02-23)
DX: T81.43XA Infection following a procedure, organ and space surgical site, initial encounter (principal); K65.1 Peritoneal abscess; J90 Pleural effusion, not elsewhere classified; E11.9 Type 2 diabetes mellitus without complications; E87.6 Hypokalemia; B96.20 Unspecified Escherichia coli [E. coli] as the cause of diseases classified elsewhere; I10 Essential (primary) hypertension; R74.01 Elevation of levels of liver transaminase levels; Y83.8 Other surgical procedures as the cause of abnormal reaction of the patient, or of later complication, without mention of misadventure at the time of the procedure; Z87.442 Personal history of urinary calculi; Z90.49 Acquired absence of other specified parts of digestive tract; Z90.710 Acquired absence of both cervix and uterus; Z88.8 Allergy status to other drugs, medicaments and biological substances; Z79.899 Other long term (current) drug therapy; Z98.891 History of uterine scar from previous surgery; Y92.89 Other specified places as the place of occurrence of the external cause; J98.11 Atelectasis
CPT/HCPCS: 36415; 49406; 74177; 80053; 80202; 81001; 81025; 82948; 83605; 83690; 83735; 84132; 84145; 85007; 85025; 87040; 87070; 87077; 87081; 87186; 99285; G0378; J0780; J1200; J1644; J1815; J2270; J2405; J2543; J3010; J3370; J3490; J7030; Q0163; Q9963; Q9967

== ENCOUNTER 2022-09-04 01:37 | Emergency (ER) | payer MEDICAID ==
[~2022-09-04] VITALS: Ht 149.9 cm; Wt 79.5 kg
[~2022-09-04 01:37] MED LIST changes: +ALBUTEROL; -AMOX-419 PO; +BENZ200C53 PO; +BLOO-580; +CEFU500T66 PO; +HYDR-3964 PO; +INSU100I39 SQ; +INSU100I45 SQ; +LISI10TA27 PO; +NEOM10DR45 EACH EAR; +ONDA4TAB12 PO; +ONDA8TAB13 PO; +PRED20TA PO
[2022-09-04] MEDS ORDERED: ibuprofen 200mg tablet PO ONE (05:05)
[2022-09-04 05:52] VITALS: BP 126/72
== END 2022-09-04 06:04 | disposition home or self-care (01) ==
LOC: ER 01:38
DX: S90.122A Contusion of left lesser toe(s) without damage to nail, initial encounter (principal); E11.9 Type 2 diabetes mellitus without complications; Z87.442 Personal history of urinary calculi; Z90.49 Acquired absence of other specified parts of digestive tract; Z90.710 Acquired absence of both cervix and uterus; Z56.0 Unemployment, unspecified; Z88.8 Allergy status to other drugs, medicaments and biological substances; Z88.6 Allergy status to analgesic agent; W22.8XXA Striking against or struck by other objects, initial encounter; Y93.89 Activity, other specified; Y92.89 Other specified places as the place of occurrence of the external cause; Y99.8 Other external cause status
CPT/HCPCS: 73630; 99283

== ENCOUNTER 2024-04-15 15:48 | Emergency (ER) | payer MEDICAID, OTHER ==
[~2024-04-15] VITALS: Ht 149.9 cm; Wt 75.0 kg
[~2024-04-15 15:48] MED LIST changes: -INSU100I45 SQ; +INSU100I61 SQ
[2024-04-15] MEDS: meclizine 12.5mg tablet PO ONE (18:21)
[2024-04-15 18:25] LABS: BASOPHILS # (AUTO) 0.1 X10'3 (0-0.2); BASOPHILS % (AUTO) 0.4 % (0-1); EOSINOPHILS % (AUTO) 0.2 % (0-6); HEMATOCRIT 39.7 % (35.0-45.0); HEMOGLOBIN 13.4 g/dl (12.0-16.0); LYMPHOCYTES # (AUTO) 1.8 X10'3 (1.1-4.8); LYMPHOCYTES % (AUTO) 10.8 % (21-51); MEAN CORPUSCULAR HEMOGLOBIN 29.6 PG (27.0-31.0); MEAN CORPUSCULAR HGB CONC 33.6 g/dL (33.0-36.5); MEAN CORPUSCULAR VOLUME 87.9 FL (78-98); MEAN PLATELET VOLUME 7.8 FL (7.4-10.4); MONOCYTES # (AUTO) 0.6 X10'3 (0-0.9); MONOCYTES % (AUTO) 3.8 % (2-12); NEUTROPHILS # (AUTO) 14.3 X10'3 (1.8-7.7); NEUTROPHILS % (AUTO) 84.8 % (42-75); PLATELET COUNT 343 X10'3 (140-440); RED BLOOD COUNT 4.52 X10'6 (4.20-5.60); RED CELL DISTRIBUTION WIDTH 13.2 % (11.5-14.5); WHITE BLOOD COUNT 16.8 X10'3 (4.5-11.0)
[2024-04-15] MEDS: normal saline 1000ML IV soln IVB ONE (18:35)
[2024-04-15 18:37] LABS: ALBUMIN 3.4 G/DL (3.4-5.0); ANION GAP 10 (8-16); BLOOD UREA NITROGEN 11 MG/DL (7-18); CALCIUM 8.7 MG/DL (8.5-10.1); CHLORIDE 102 MMOL/L (99-107); CREATININE 0.55 MG/DL (0.40-0.90); GLUCOSE 193 MG/DL (70-104); POTASSIUM 3.2 MMOL/L (3.5-5.1); SODIUM 135 MMOL/L (135-145); TOTAL CARBON DIOXIDE 23.4 MMOL/L (24-32); eCRCL 89 ML/MIN; eGFR > 90 ML/MIN
[2024-04-15] MEDS: LORazepam 1 MG tablet PO ONE (19:24)
[2024-04-15 20:45] VITALS: BP 139/89; PULSE 88; RESP 16; TEMP 98.3; O2SAT 98
== END 2024-04-15 20:48 | disposition home or self-care (01) ==
LOC: ER 15:48
DX: R42 Dizziness and giddiness (principal); R11.0 Nausea; J45.909 Unspecified asthma, uncomplicated; E11.9 Type 2 diabetes mellitus without complications; Z88.8 Allergy status to other drugs, medicaments and biological substances; Z79.899 Other long term (current) drug therapy; Z79.84 Long term (current) use of oral hypoglycemic drugs; Z79.2 Long term (current) use of antibiotics; Z98.890 Other specified postprocedural states
CPT/HCPCS: 36415; 80048; 84484; 85025; 93005; 96360; 99284; J7030; J8597

== ENCOUNTER 2024-12-14 08:36 | Emergency (ER) | payer MEDICAID, OTHER ==
[~2024-12-14] VITALS: Ht 149.9 cm; Wt 76.1 kg
[~2024-12-14 08:36] MED LIST changes: +ONDA-243 PO; +ONDA-245 PO; -ONDA4TAB12 PO; -ONDA8TAB13 PO
[2024-12-14] MEDS ORDERED: CEPH-585 PO (09:58)
[2024-12-14] MEDS ORDERED: POLOS EACHEYE (09:58)
[2024-12-14] MEDS ORDERED: PRED20TA PO (09:58)
[2024-12-14 10:05] VITALS: BP 126/70; PULSE 70; RESP 16; TEMP 97.8; O2SAT 98
== END 2024-12-14 10:06 | disposition home or self-care (01) ==
LOC: ER 08:37
DX: H01.004 Unspecified blepharitis left upper eyelid (principal); J45.909 Unspecified asthma, uncomplicated; E11.9 Type 2 diabetes mellitus without complications; Z88.8 Allergy status to other drugs, medicaments and biological substances; Z88.6 Allergy status to analgesic agent; Z90.710 Acquired absence of both cervix and uterus; Z90.49 Acquired absence of other specified parts of digestive tract; Z87.442 Personal history of urinary calculi; Z98.890 Other specified postprocedural states
CPT/HCPCS: 99283